=== PATIENT | female | born 1985 | race Caucasian/White ===

== ENCOUNTER 2020-09-20 19:39 | Emergency (ER) | payer OTHER ==
[~2020-09-20] VITALS: Ht 157.5 cm; Wt 51.7 kg
[2020-09-20] MEDS ORDERED: TDAP DIPH,PERTUSS,TET VAC/PF 0.5 ML DISP.SYRIN IM ONE ×2 (21:30→21:39)
[2020-09-20] MEDS ORDERED: OXYCODONE/APAP 5-325 MG TABLET PO ONE (21:30)
[2020-09-20] MEDS ORDERED: LIDOCAINE HCL 2% 20 ML VIAL IJ ONE (21:30)
[2020-09-20] MEDS ORDERED: AMOXICILLIN-CLAVUL 875-125MG TABLET PO ONE (21:30)
[2020-09-20] MEDS ORDERED: AMOXICILLIN-CLAVUL 875-125MG TABLET ONE (21:38)
[2020-09-20] MEDS ORDERED: OXYCODONE/APAP 5-325 MG TABLET ONE (21:38)
--- NOTE | 2020-09-20 22:00 | NUR ---
at bedside for MSE.
[2020-09-20] MEDS ORDERED: OXYC-128 PO (22:54)
[2020-09-20] MEDS ORDERED: AMOX-430 PO (22:54)
--- NOTE | 2020-09-20 23:00 | NUR ---
Patient discharged to home in stable condition. Written and verbal after care instructions given. Patient verbalizes understanding of instructions. Stressed follow up or return to ER for worsening s/s. Pt ambulated out of ER with steady gait. All belongings with patient. No acute distress noted.
[2020-09-20 23:01] VITALS: BP 120/65
== END 2020-09-20 23:02 | disposition home or self-care (01) ==
LOC: ER 19:39
DX: S51.812A Laceration without foreign body of left forearm, initial encounter (principal); S51.832A Puncture wound without foreign body of left forearm, initial encounter; W54.0XXA Bitten by dog, initial encounter; Y93.9 Activity, unspecified; Y92.89 Other specified places as the place of occurrence of the external cause
CPT/HCPCS: 90715; A4217; A4663; J3490

== ENCOUNTER 2020-10-05 12:43 | Emergency (ER) | payer OTHER ==
[~2020-10-05] VITALS: Ht 154.9 cm; Wt 53.1 kg
[~2020-10-05 12:43] MED LIST: AMOX-430 PO; OXYC-128 PO
--- NOTE | 2020-10-05 12:59 | NUR ---
Patient discharged to home in stable condition. Written and verbal after care instructions given. Patient verbalizes understanding of instructions. Stressed follow up or return to ER for worsening s/s.
[2020-10-05] MEDS ORDERED: NEOMY/BACITRA/POLYMYXIN B OINT UD PACKET TP ONE ×2 (13:00→13:03)
== END 2020-10-05 13:01 | disposition home or self-care (01) ==
LOC: ER 12:44
DX: S51.812D Laceration without foreign body of left forearm, subsequent encounter (principal); X58.XXXD Exposure to other specified factors, subsequent encounter
CPT/HCPCS: A4663